=== PATIENT | female | born 1960 | race American Indian/Alaskan Native ===

== ENCOUNTER → 2019-01-28 | Emergency (ER) | payer OTHER ==
[~2019-01-28] VITALS: Ht 175.3 cm; Wt 115.8 kg
[~2019-01-28] MED LIST: BIOTIN1 MG PO; C COMPLEX1000 MG PO; CETIRIZINE HCL10 MG PO; DIPHENHYDRAMINE25 M1 PO; IRON325 M1 PO; LEVOTHYROXINE112 MCG PO; MEDROL4 M1 PO; MODAFINIL100 MG PO; NEILMED SINUS1 EACH NAS; NORTRIPTYLINE H10 MG PO; OMEPRAZOLE20 MG PO; PRILOSEC20 MG PO; PROVENTIL HFA6.7 GM INH; ROBAXIN-750750 MG PO; ROPINIROLE HCL0.5 MG PO; SUDAFED 12-HOU120 MG PO; SUDOGEST60 MG PO; SUMATRIPTAN SU100 MG PO; TRAMADOL HCL50 MG PO; TYLENOL325 MG PO; ULTRAM50 MG PO
--- NOTE | 2019-01-29 13:23 | EKG ---
[facility] [address] [facility] [place] [address] Signed Normal sinus rhythm Normal ECG No previous ECGs available Confirmed by GIANCARLO LANDERS MD ([id number]) on 01/29/2019 1:23:23 PM Electronically Signed By: GIANCARLO LANDERS MD 01/29/19 1323 PATIENT NAME: MICAH TUCKER Electrocardiogram DATE OF : 60 PHYSICIAN: GIANCARLO LANDERS MD REPORT #: [id number] REPORT IS CONFIDENTIAL AND NOT TO BE RELEASED WITHOUT AUTHORIZATION
== END ==
LOC: ED 22:42
DX: R07.9 Chest pain, unspecified (principal); E03.9 Hypothyroidism, unspecified; K21.9 Gastro-esophageal reflux disease without esophagitis; G43.909 Migraine, unspecified, not intractable, without status migrainosus; Z88.8 Allergy status to other drugs, medicaments and biological substances; Z88.5 Allergy status to narcotic agent; Z79.899 Other long term (current) drug therapy
CPT/HCPCS: 71045; 80053; 84484; 85025; 93005; 93010; 99285-25

== ENCOUNTER 2019-09-15 11:22 | Emergency (ER) | payer OTHER ==
[~2019-09-15] VITALS: Ht 175.3 cm; Wt 113.5 kg
--- NOTE | 2019-09-15 13:03 | EKG ---
[facility] [address] [facility] [place] [address] Signed Normal sinus rhythm Normal ECG When compared with ECG of 28-JAN-2019 22:47, No significant change was found Confirmed by GIANCARLO LANDERS MD ([id number]) on 09/15/2019 1:02:50 PM Electronically Signed By: GIANCARLO LANDERS MD 09/15/19 1303 PATIENT NAME: MICAH TUCKER Electrocardiogram DATE OF : 60 PHYSICIAN: GIANCARLO LANDERS MD REPORT #: [id number] REPORT IS CONFIDENTIAL AND NOT TO BE RELEASED WITHOUT AUTHORIZATION
== END 2019-09-15 15:18 | disposition home or self-care (01) ==
LOC: ED 11:22
DX: R07.2 Precordial pain (principal); K44.9 Diaphragmatic hernia without obstruction or gangrene; E03.9 Hypothyroidism, unspecified; K21.9 Gastro-esophageal reflux disease without esophagitis; Z90.710 Acquired absence of both cervix and uterus; Z88.5 Allergy status to narcotic agent; Z88.8 Allergy status to other drugs, medicaments and biological substances; Z79.899 Other long term (current) drug therapy
CPT/HCPCS: 71045; 80053; 83735; 84484; 85025; 85379; 93005; 93010; 96374; 96375; 99285-25; J1885; J2060

== ENCOUNTER 2021-01-05 19:58 | Emergency (ER) | payer OTHER ==
[~2021-01-05] VITALS: Ht 175.3 cm; Wt 113.5 kg
[2021-01-05] MEDS ORDERED: PANTOPRAZOLE SO40 MG PO (20:13)
[2021-01-05] MEDS ORDERED: LATANOPROST2.5 ML OPTH (20:14)
--- NOTE | 2021-01-05 21:40 | EKG ---
[facility] [address] [facility] [place], [place] [address] Signed Normal sinus rhythm Nonspecific ST abnormality Abnormal ECG When compared with ECG of 15-SEP-2019 11:29, No significant change was found Confirmed by RENATE LEVINE MD ([id number]) on 01/05/2021 9:40:25 PM Electronically Signed By: RENATE LEVINE MD 01/05/212139 PATIENT NAME: MICAH TUCKER Electrocardiogram DATE OF : 60 PHYSICIAN: RENATE LEVINE MD REPORT #: [id number] REPORT IS CONFIDENTIAL AND NOT TO BE RELEASED WITHOUT AUTHORIZATION
== END 2021-01-05 22:54 | disposition home or self-care (01) ==
LOC: ED 19:58
DX: R07.9 Chest pain, unspecified (principal); R42 Dizziness and giddiness; M54.2 Cervicalgia; E03.9 Hypothyroidism, unspecified; K21.9 Gastro-esophageal reflux disease without esophagitis; G43.909 Migraine, unspecified, not intractable, without status migrainosus; Z88.8 Allergy status to other drugs, medicaments and biological substances; Z88.5 Allergy status to narcotic agent; Z79.899 Other long term (current) drug therapy
CPT/HCPCS: 71045; 80053; 83735; 84484; 85025; 93005; 93010; 99285-25

== ENCOUNTER 2021-07-15 14:16 | Emergency (ER) | payer OTHER ==
[~2021-07-15] VITALS: Ht 175.3 cm; Wt 113.5 kg
[~2021-07-15 14:16] MED LIST changes: +LATANOPROST2.5 ML OPTH; +PANTOPRAZOLE SO40 MG PO
--- OUTSIDE RECORDS SUMMARY | 2021-07-15 14:18 | XMS ---
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 Angie has no Care Guidelines for this patient. Esha VISIT COUNT (12 MO.) [address] [place] [address] [place] 2 [place] TOTAL 3 NOTE: Visits indicate total known visits. ED/C VISIT TRACKING (12 MO.) 07/15/2021 14:17 [facility] TYPE: Emergency COMPLAINT: - NAUSEA, WEAKNESS 01/27/2021 18:08 [facility] [place] TYPE: Emergency DIAGNOSES: - Chest Pain - Chest pain, dizziness, Afib - Other chest pain 01/05/2021 19:[address] [facility] [facility] [place] TYPE: Emergency COMPLAINT: - CHEST PAIN DIAGNOSES: - Gastro-esophageal reflux disease without esophagitis - Allergy status to narcotic agent - Migraine, unspecified, not intractable, without status migrainosus - Chest pain, unspecified - Cervicalgia - Hypothyroidism, unspecified - Dizziness and giddiness - Other retirement (current) drug therapy - Allergy status to other drugs, medicaments and biological substances INPATIENT VISIT TRACKING (12 MO.) No inpatient visits to display in this time frame [email or web address]
--- NOTE | 2021-07-16 07:11 | EKG ---
[facility] [address] [facility] [place], [place] [address] Signed Normal sinus rhythm Normal ECG When compared with ECG of 05-JAN-2021 20:05, No significant change was found Confirmed by RENATE LEVINE MD ([id number]) on 07/16/2021 7:11:08 AM Electronically Signed By: RENATE LEVINE MD 07/16/21710 PATIENT NAME: MICAH TUCKER Electrocardiogram DATE OF : 60 PHYSICIAN: RENATE LEVINE MD REPORT #: [id number] REPORT IS CONFIDENTIAL AND NOT TO BE RELEASED WITHOUT AUTHORIZATION
== END 2021-07-15 17:35 | disposition home or self-care (01) ==
LOC: ED 14:16
DX: U07.1 COVID-19 (principal); E03.9 Hypothyroidism, unspecified; K21.9 Gastro-esophageal reflux disease without esophagitis; G43.909 Migraine, unspecified, not intractable, without status migrainosus; Z88.8 Allergy status to other drugs, medicaments and biological substances; Z88.5 Allergy status to narcotic agent; Z79.899 Other long term (current) drug therapy
CPT/HCPCS: 71045; 80053; 83735; 85025; 93005; 93010; 96374; 99284-25; J2405; J7030; M0243; Q0244